=== PATIENT | male | born 1930 | race Caucasian/White ===

== ENCOUNTER 2017-05-01 21:53 | Emergency (ER) | payer MEDICARE ==
[~2017-05-01] VITALS: Ht 172.7 cm; Wt 63.5 kg
[2017-05-01 22:00] VITALS: BP 133/49
[2017-05-01] MEDS ORDERED: Pantoprazole Inj IV ONE (22:00)
[2017-05-01 22:30] VITALS: BP 118/59
[2017-05-01 22:33] LABS: MEAN CORPUSCULAR HEMOGLOBIN 31.3 PG (27.0-31.0); MEAN CORPUSCULAR HGB CONC 31.4 G/DL (32.0-36.0); MEAN CORPUSCULAR VOLUME 100 FL (80-99); MEAN PLATELET VOLUME 5.8 FL (6.5-10.1); PLATELET COUNT 242 K/UL (150-450); RED CELL DISTRIBUTION WIDTH 12.4 % (11.6-14.8); WHITE BLOOD COUNT 16.6 K/UL (4.8-10.8)
[2017-05-01 22:40] LABS: ANION GAP 13 mmol/L (5-15); CALCIUM 7.9 MG/DL (8.5-10.1); CARBON DIOXIDE 20 MMOL/L (21-32); CHLORIDE 112 MMOL/L (98-107); CREATININE 2.1 MG/DL (0.55-1.30); INR 1.1 (0.9-1.1); POTASSIUM 5.1 MMOL/L (3.5-5.1); PROTHROMBIN TIME 11.1 SEC (9.30-11.50); SODIUM 144 MMOL/L (136-145)
[2017-05-01 22:46] LABS: ALANINE AMINOTRANSFERASE 23 U/L (12-78); ASPARTATE AMINO TRANSFERASE 28 U/L (15-37); LIPASE 167 U/L (73-393); TOTAL PROTEIN 5.7 G/DL (6.4-8.2)
[2017-05-01 23:20] LABS: BAND NEUTROPHILS % (MANUAL) 1 % (0-8); BASOPHILS % (MANUAL) 0 % (0-2); EOSINOPHILS % (MANUAL) 0 % (0-3); LYMPHOCYTES % (MANUAL) 3 % (20-45); NEUTROPHILS % (MANUAL) 93 % (45-75); PLATELET ESTIMATE ADEQUATE; TOTAL CELLS COUNTED 100
[2017-05-01 23:21] LABS: HYPOCHROMASIA 2+; MACROCYTES 2+; PLATELET MORPHOLOGY NORMAL; POLYCHROMASIA 1+
[2017-05-01 23:35] VITALS: BP 131/55
--- NOTE | 2017-05-01 23:44 | Emergency Room Report ---
History of Present Illness General Chief Complaint: Generalized Weakness Source: Patient Present Illness HPI 86-year-old male brought in from home with one to 2 days of generalized weakness , dark stool, blood in stool Denies chest pain, shortness of breath, palpitations, abdominal pain Per Elliot Ortiz, history of GERD, on Prilosec Last hemoglobin was 12 2 months ago No known history of chronic leukocytosis no Other known history of recent GI bleed Allergies: Coded Allergies: No Known Allergies (Unverified , 05/01/17) Patient History Past Medical History: other - GERD Past Surgical History: none Pertinent Family History: none Social History: Denies: smoking, alcohol use, drug use Immunizations: UTD Reviewed Nursing Documentation: PMH: Agreed, PSxH: Agreed Nursing Documentation-PMH Past Medical History: No History, Except For Hx Cancer: Yes - prostate Review of Systems All Other Systems: negative except mentioned in HPI Physical Exam Vital Signs Date Time Temp Pulse Resp B/P (MAP) Pulse Ox O2 Delivery O2 Flow Rate FiO2 05/01/17 21:50 96.1 90 14 114/74 98 Room Air Sp02 EP Interpretation: reviewed, normal General Appearance: normal inspection, well appearing, no apparent distress, alert, GCS 15, non-toxic Head: normocephalic, atraumatic Eyes: bilateral eye PERRL, bilateral eye EOMI ENT: normal ENT inspection, hearing grossly normal, normal pharynx, no angioedema, normal voice, TMs + canals normal, uvula midline, moist mucus membranes Neck: normal inspection, full range of motion, supple, thyroid normal, no meningismus, no bony tend Respiratory: normal inspection, lungs clear, normal breath sounds, no rhonchi, no respiratory distress, no retraction, no accessory muscle use, no wheezing, speaking full sentences Cardiovascular #1: regular rate, rhythm, no edema, no JVD, normal capillary refill Gastrointestinal: normal inspection, normal bowel sounds, non tender, soft, no mass, no peritonitis, non-distended, no guarding, no hernia, no pulsatile mass Genitourinary: no CVA tenderness Musculoskeletal: normal inspection, back normal, normal range of motion, no calf tenderness, pelvis stable, Tanya's Sign negative Neurologic: normal inspection, alert, oriented x3, responsive, 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, motor strength/tone normal, cerebellar normal, normal gait, speech normal Psychiatric: normal inspection, judgement/insight normal, mood/affect normal, no suicidal/homicidal ideation, no delusions Skin: normal inspection, no rash, pallor Lymphatic: normal inspection, no adenopathy Medical Decision Making Diagnostic Impression: Primary Impression: Episode of generalized weakness Additional Impressions: Anemia Qualified Codes: D64.9 - Anemia, unspecified Melena Leukocytosis Qualified Codes: D72.825 - Bandemia ER Course No obvous source of infection- UA with hematuria ,but no UTI CXR: ?infiltrate but no lobar PNA CT abdomen: no diverticulitis Low H&H - per [facility], last Hb was 12 two months ago Blood Cx pending, empiric Abx given Dr Ortiz accepted for transfer to med/surg bed at [facility] 1120pm Patient transferred at 3am after 2U PRBC transfusion EKG Diagnostic Results Rate: normal Rhythm: NSR ST Segments: no acute changes ASA given to the pt in ED: No Rhythm Strip Diag. Results EP Interpretation: yes Rate: 89 Rhythm: NSR, no PVC's, no ectopy Chest X-Ray Diagnostic Results Chest X-Ray Diagnostic Results : Chest X-Ray Ordered: Yes # of Views/Limited/Complete: 1 View Indication: Other EP Interpretation: Yes Interpretation: no consolidation, no effusion, no pneumothorax, no acute cardiopulmonary disease Impression: No acute disease Electronically Signed by: Dr Joseph Phillips mD Last Vital Signs Date Time Temp Pulse Resp B/P (MAP) Pulse Ox O2 Delivery O2 Flow Rate FiO2 05/01/17 22:00 97.1 84 15 133/49 100 Room Air Status: improved Disposition: ADMITTED INPATIENT Condition: Serious Scripts Unable to Obtain Active Prescriptions or Reported Meds Referrals: NON PHYSICIAN (PCP) JOSEPH PHILLIPS M.D. May 01, 2017 23:44
[2017-05-01 23:55] VITALS: BP 123/43
[2017-05-02] VITALS (7 sets, daily range): BP systolic 102–128; BP diastolic 57–83
[2017-05-02 01:31] LABS: APPEARANCE,URINE CLEAR; KETONES,URINE NEGATIVE (NEGATIVE); LEUKOCYTE ESTERASE ,URINE NEGATIVE (NEGATIVE); NITRITE,URINE NEGATIVE (NEGATIVE); PH,URINE 5 (4.5-8.0); PROTEIN,URINE 2+ (NEGATIVE); UROBILINOGEN,URINE NORMAL MG/DL (0.0-1.0)
[2017-05-02 01:46] LABS: BACTERIA,URINE MODERATE /HPF; COARSE GRANULAR CASTS,URINE 0-2 /LPF; RBC,URINE TNTC /HPF (0 - 0); WBC,URINE 0-2 /HPF (0 - 0)
--- NOTE | 2017-05-02 10:48 | Diagnostic Imaging Report ---
Indication: Reason For Exam: SOB Technique: One view of the chest Comparison: none Findings: Lungs and pleural spaces are clear. The heart is upper limits of normal with left ventricular hypertrophy configuration. The aorta is tortuous and calcified. Impression: No acute process
--- NOTE | 2017-05-02 12:28 | Diagnostic Imaging Report ---
Indication: Abdominal pain Technique: Spiral acquisitions obtained through the abdomen and pelvis. No oral contrast utilized, per emergency room physician request No IV contrast utilized, for emergency room physician request.. Multiplanar reconstructions were generated. Total dose length product 539.23 mGycm. CTDIvol(s) 11.9 mGy. Dose reduction achieved using automated exposure control Comparison: None Findings: Lack of enteric contrast severely limits assessment of the GI tract. There is colonic diverticulosis. No evidence of diverticulitis. The appendix is normal. There are a few prominent small bowel loops, some which contain some fluid and gas, but no iglesia distention. No free or loculated intraperitoneal air or fluid is evident. The distal esophagus is unremarkable. There is material filling the gastric lumen, which is probably fluid and food, but mass in the gastric fundus or body cannot be ruled out with confidence. Lack of IV contrast limits assessment of the solid organs. The liver, gallbladder, bile ducts, pancreas, spleen, adrenals are all unremarkable. The the kidneys demonstrate multiple cysts bilaterally. One of the cysts in the right kidney demonstrates minimal mural calcification. No hydronephrosis or hydroureter. Bladder is unremarkable. The prostate is unremarkable for age. The included lung bases appear somewhat hyperinflated. A small pleural calcification is seen on the left. Bones demonstrate mild thoracolumbar scoliotic deformity and degenerative spondylosis. A bone island and a likely bone infarct are seen in the left iliac bone. Impression: No definite acute abnormality Colonic diverticulosis. No evidence of diverticulitis Multiple liver cysts Suspect COPD Scoliosis and degenerative spondylosis. This agrees with the preliminary interpretation provided overnight by [facility]erad[facility] service. The CT scanner at [facility] is accredited by the [employer] and the scans are performed using protocols designed to limit radiation exposure to as low as reasonably achievable to attain images of sufficient resolution adequate for diagnostic evaluation.
[2017-05-02 13:09] LABS: OTHERS PATHOLOGIST COMMENT
--- NOTE | 2017-05-04 00:25 | Cardiology Report ---
APPROVED REPORT EKG Measurement Heart [id number] Normal sinus rhythm Left axis deviation Minimal voltage criteria for LVH, may be normal variant Abnormal ECG
== END 2017-05-02 03:40 | disposition other institution (70) ==
LOC: EDBD 21:53 → EMR 22:15
DX: R53.1 Weakness (principal); D64.9 Anemia, unspecified; K92.1 Melena; D72.829 Elevated white blood cell count, unspecified; K21.9 Gastro-esophageal reflux disease without esophagitis
CPT/HCPCS: 36415; 36430; 71010; 74176; 80053; 81003; 83690; 85007; 85025; 85610; 86850; 86900; 86901; 86920; 87040; 87086; 93005; 96361; 96365; 96375; 99285; C9113; J1956; P9016